=== PATIENT | male | born 1970 | race Hispanic/Latino ===

== ENCOUNTER → 2018-12-08 | Day surgery (SDC) | payer MEDICARE ==
[~2018-12-08] MED LIST: AMLODIPINE BESY10 MG PO; FENTANYL CITRATE/PF 100MCG/2 ML INJ ONE; GEMFIBROZIL600 MG PO; GLIPIZIDE5 MG PO; GLUCOSE TAB PO; HYOSCYAMINE 0.125 MG TAB ONE; LANTUS SQ; METFORMIN HCL500 MG PO; MIDAZOLAM HCL 2 MG/2 ML VIAL ONE; NORCO 10-325 T1 EACH PO; PANTOPRAZOLE SO40 MG PO; PROPOFOL IV EMULSION 10 MG/ML 50 ML VIAL ONE; TRIAMTERENE-HCTZ1 EA PO; ULTRAM50 MG PO
--- NOTE | 2018-12-08 07:10 | NUR ---
SPIRITUAL CARE - Pre-Surgery Assessment: Pt in bed. Pt's at bedside. Pt reported supportive attention from family and friends. Intervention: I provided pastoral presence, hospitality, and sympathetic listening. I acquainted pt with availability of alteration tailor while hospitalized. Outcome: Pt expressed appreciation for visit. No need for follow up indicated at this time. MARTHA [facility] Spiritual Care Department O: [phone] Pager: [phone] ([phone] number calling from)
[2018-12-08 09:25] VITALS: BP 145/93
--- NOTE | 2018-12-08 11:33 | Operative Report ---
DATE OF PROCEDURE: 12/08/2018 SURGEON: Stalin Millan MD PROCEDURE PERFORMED: Colonoscopy and polypectomy. INDICATIONS FOR COLONOSCOPY: Lower abdominal pain, constipation. MEDICATIONS: The patient was done under MAC, please see anesthesiologist's note. PROCEDURE IN DETAIL: With the patient in left lateral decubitus position, flexible fiberoptic Olympus colonoscope was inserted into the rectum with ease and advanced all the way to the cecum. Mucosa overlying the cecum, ascending colon, transverse colon appeared to be within normal limits. There were some patchy areas of intense erythema in the descending as well as the sigmoid colon. Random biopsies were obtained. Some minimal diverticulosis was noted in the sigmoid colon. Two minute polyps were hot biopsied from the sigmoid colon. The rectum appeared to be within normal limits. The scope was then retroflexed into the distal rectum and moderate-sized internal hemorrhoids were noted, none of which was actively bleeding. The scope was then straightened out, it was subsequently withdrawn. The patient tolerated the procedure well. IMPRESSION: 1. Mild patchy left-sided colitis. 2. Diverticulosis. 3. Sigmoid colon polyps x2, hot biopsied. 4. Internal hemorrhoids, none actively bleeding. PLAN: Follow up histology. Initiate VSL#3 one p.o. daily, Bentyl 10 mg one p.o. t.i.d. The patient might benefit from a followup colonoscopy in 3 to 5 years. Stalin Millan MD [facility] [place] [place] /[id number] cc: Dr. Al Holliday
== END | disposition home or self-care (01) ==
LOC: OR 05:57
PROVIDERS: ATTEND Internal Medicine Gastroenterology
DX: K51.50 Left sided colitis without complications (principal); K63.5 Polyp of colon; K57.30 Diverticulosis of large intestine without perforation or abscess without bleeding; K59.09 Other constipation; K64.8 Other hemorrhoids; K42.9 Umbilical hernia without obstruction or gangrene; R20.0 Anesthesia of skin; I10 Essential (primary) hypertension; E78.5 Hyperlipidemia, unspecified; E11.9 Type 2 diabetes mellitus without complications; K21.9 Gastro-esophageal reflux disease without esophagitis; Z88.6 Allergy status to analgesic agent; Z79.4 Long term (current) use of insulin; Z68.31 Body mass index [BMI] 31.0-31.9, adult
CPT/HCPCS: 36415; 45380; 45384; 82948; 88305; J2250; J2704; 45378

== ENCOUNTER → 2023-07-01 | Outpatient (REF) | payer MEDICARE ==
[~2023-07-01] MED LIST changes: +FAMOTIDINE20 MG PO; -FENTANYL CITRATE/PF 100MCG/2 ML INJ ONE; -HYOSCYAMINE 0.125 MG TAB ONE; +IRON; -MIDAZOLAM HCL 2 MG/2 ML VIAL ONE; -PROPOFOL IV EMULSION 10 MG/ML 50 ML VIAL ONE; +VITAMIN D
== END ==
LOC: DX 08:53 → EDSTATUS 09:00
PROVIDERS: ATTEND Nurse Practitioner
DX: R10.11 Right upper quadrant pain (principal); D64.89 Other specified anemias
CPT/HCPCS: 74270